=== PATIENT | female | born 1960 ===

== ENCOUNTER → 2023-07-09 08:29 | Outpatient (CLI) | payer OTHER, SELFPAY ==
--- NOTE | ~2023-07-09 | MR_ITS ---
MRI of the left ankle Clinical history: Pain Technique: Coronal proton-density and proton-density fat-sat images, axial proton-density and proton- density fat-sat images, and sagittal proton-density and proton-density fat-sat images were acquired. Findings: Syndesmotic ligaments are intact. Anterior talofibular ligament is probably intact, mild in creased signal. Posterior talofibular ligament is intact. Calcaneofibular ligament is probably intact , mild increased signal. Deltoid ligament is intact. Medial flexor tendons, peroneal tendons, anterior extensor tendons, and Achilles tendon are intact. There is no osteochondral lesion of the talar dome. Bone marrow signals and joint spaces are unremark able. No significant joint effusion evident. There is thickening and increased signal at the origin of the plantar fascia with small plantar calca rodrick spur present. Normal signal preserved in the sinus Tarsi. Impression: Findings consistent with plantar fasciitis, as detailed above. Mild increased signal of the anterior talofibular and calcaneofibular ligaments, consistent with sequ mecca of prior lateral ankle sprain. No acute soft tissue edema in this region seen. Reviewed, dictated and finalized at location . Impression: Findings consistent with plantar fasciitis, as detailed above. Mild increased signal of the anterior talofibular and calcaneofibular ligaments , consistent with sequela of prior lateral ankle sprain. No acute soft tissue e jeff in this region seen.
== END ==
PROVIDERS: PCP Family Medicine
DX: M25.572 Pain in left ankle and joints of left foot (principal)
CPT/HCPCS: 73721